=== PATIENT | female | born 1960 | race African-American/Black ===

== ENCOUNTER 2017-04-09 13:47 | Outpatient (CLI) ==
[2016-01-21 15:20] VITALS: BMI 26.4
[2017-04-09 14:25] LABS: BUN/CREATININE RATIO 11.94; CALCIUM 10.5 mg/dL (8.2-10.2); CREATININE 1.34 mg/dL (0.60-1.30)
[2017-04-10 04:47] LABS: URINE CREATINE 74.6 mg/dL (Not Estab.)
== END 2017-04-09 13:48 | disposition home or self-care (01) ==
LOC: LAB 13:47
PROVIDERS: ATTEND Internal Medicine
DX: N18.3 Chronic kidney disease, stage 3 (moderate) (principal); D63.1 Anemia in chronic kidney disease; I12.9 Hypertensive chronic kidney disease with stage 1 through stage 4 chronic kidney disease, or unspecified chronic kidney disease; R80.9 Proteinuria, unspecified; E55.9 Vitamin D deficiency, unspecified; E11.22 Type 2 diabetes mellitus with diabetic chronic kidney disease; E87.2 Acidosis
CPT/HCPCS: 36415; 80048; 82570; 84156

== ENCOUNTER 2017-06-21 14:39 | Outpatient (CLI) ==
[2016-01-21 15:20] VITALS: BMI 26.4
[2017-06-21 15:15] LABS: ANION GAP 13.2; BUN/CREATININE RATIO 13.63; CREATININE 1.76 mg/dL (0.60-1.30); POTASSIUM 4.2 mmol/L (3.5-5.10)
[2017-06-22 14:33] LABS: URINE CREATININE 89.1 mg/dL (Not Estab.); URINE TOTAL PROTEIN 54.7 mg/dL (Not Estab.)
== END 2017-06-21 14:40 | disposition home or self-care (01) ==
LOC: LAB 14:39
PROVIDERS: ATTEND Internal Medicine
DX: N18.3 Chronic kidney disease, stage 3 (moderate) (principal); I12.9 Hypertensive chronic kidney disease with stage 1 through stage 4 chronic kidney disease, or unspecified chronic kidney disease; R80.9 Proteinuria, unspecified; E55.9 Vitamin D deficiency, unspecified; E11.22 Type 2 diabetes mellitus with diabetic chronic kidney disease; E87.2 Acidosis
CPT/HCPCS: 36415; 80048; 82570; 84156

== ENCOUNTER 2017-08-05 10:12 | Outpatient (CLI) ==
[2016-01-21 15:20] VITALS: BMI 26.4
[2017-08-05 10:47] LABS: ALBUMIN 3.1 g/dL (3.4-5.0); BUN/CREATININE RATIO 22.22; CREATININE 1.53 mg/dL (0.60-1.30); PHOSPHORUS 3.7 mg/dL (2.5-4.9)
[2017-08-06 10:00] LABS: URINE CREATININE 55.8 mg/dL (Not Estab.); URINE TOTAL PROTEIN 13.5 mg/dL (Not Estab.)
== END 2017-08-05 10:13 | disposition home or self-care (01) ==
LOC: LAB 10:12
PROVIDERS: ATTEND Internal Medicine
DX: N18.3 Chronic kidney disease, stage 3 (moderate) (principal); I12.9 Hypertensive chronic kidney disease with stage 1 through stage 4 chronic kidney disease, or unspecified chronic kidney disease; R80.9 Proteinuria, unspecified; E55.9 Vitamin D deficiency, unspecified
CPT/HCPCS: 36415; 80069; 82570; 84156

== ENCOUNTER 2017-08-12 07:18 | Outpatient (CLI) ==
[2016-01-21 15:20] VITALS: BMI 26.4
--- NOTE | 2017-08-12 08:16 | US ---
Exam: Ren-scale and color Doppler ultrasonographic evaluation of the kidneys and urinary bladder. Comparison: None available. Reason for exam: Asymptomatic microhematuria. FINDINGS: The right kidney measures 9.04 x 3.9 x 3.99 cm with normal appearing echotexture, no hydro nephrosis, and no nephrolithiasis. Left kidney measures approximately 8.94 x 4.76 x 4.28 cm with normal appearing echotexture, no hydron ephrosis, and no nephrolithiasis. The bladder is incompletely evaluated secondary to non distension without gross abnormality seen on t he ultrasound evaluation. Impression: Unremarkable sonographic evaluation of the kidneys and urinary bladder.
== END 2017-08-12 07:19 | disposition home or self-care (01) ==
LOC: RAD 07:18
PROVIDERS: ATTEND Urology
DX: R31.21 Asymptomatic microscopic hematuria (principal)
CPT/HCPCS: 76770

== ENCOUNTER 2017-12-24 11:40 | Outpatient (CLI) | payer OTHER ==
[2016-01-21 15:20] VITALS: BMI 26.4
== END 2017-12-24 11:41 | disposition home or self-care (01) ==
LOC: LAB 11:40
PROVIDERS: ATTEND Internal Medicine
DX: N18.3 Chronic kidney disease, stage 3 (moderate) (principal); I12.9 Hypertensive chronic kidney disease with stage 1 through stage 4 chronic kidney disease, or unspecified chronic kidney disease; R80.9 Proteinuria, unspecified; E55.9 Vitamin D deficiency, unspecified
CPT/HCPCS: 36415; 80048; 82570; 84156

== ENCOUNTER 2018-01-15 15:10 | Emergency (ER) ==
[2018-01-15 15:15] VITALS: BP 150/85; TEMP 98.4; BMI 23.3
--- NOTE | 2018-01-15 15:38 | ED.PDOC ---
General ED Provider: Dr. DAVID HOLLOWAY Chief Complaint: Eye Problem Stated Complaint: left upper eye lid noudle/ abscess Time Seen by Physician: 15:10 Mode of Arrival: Walk-In Information Source: Patient Exam Limitations: No limitations Nursing and Triage Documentation Reviewed and Agree: Yes Reviewed sepsis parameters & appropriate labs ordered?: Yes System Inflammatory Response Syndrome: Not Applicable Sepsis Protocol: For patient's 13 years and over: Temp is 96.8 and below OR 101 and greater Pulse >90 BPM Resp >20/minute Acutely Altered Mental Status Are patient's symptoms suggestive of a new infection, such as: -Pneumonia -Skin, Soft Tissue -Endocarditis -UTI -Bone, Joint Infection -Implantable Device -Acute Abdominal Infection -Wound Infection -Meningitis -Blood Stream Catheter Infection -Unknown System Inflammatory Response Syndrome: Not Applicable (see photos) EENT Complaint Exam - Eye Complaint/Exam Onset/Duration: 1 week Symptoms Are: Still present Timing: Constant Initial Severity: Moderate Current Severity: Moderate Location: Discreet (left upper lid center ) Aggravating: Reports: None Associated Signs and Symptoms: Denies: Photophobia, Clear drainage, Purulent drainage, Vision impairment, Fever, Swelling Eye Surgical History: Reports: None Penetrating Injury Risk Factors: None Globe Rupture Risk Factors: None Acute Glaucoma Risk Factors: None Optic Artery Occlusion Risk Factors: None Visual Field: Normal Extraocular Movement: Normal Orbit Findings: Normal Globe Findings: Intact Lid Findings: Erythema (abscess see photos) Differential Diagnoses: Other (abscess ) Review of Systems - Review Of Systems Constitutional: Reports: No symptoms Eyes: Reports: Other (abscess upper lid ) Ears, Nose, Mouth, Throat: Reports: No symptoms Respiratory: Reports: No symptoms Cardiac: Reports: No symptoms GI: Reports: No symptoms : Reports: No symptoms Musculoskeletal: Reports: No symptoms Skin: Reports: No symptoms Neurological: Reports: No symptoms Endocrine: Reports: No symptoms Hematologic/Lymphatic: Reports: No symptoms All Other Systems: Reviewed and Negative Past Medical History - Past Medical History Previously Healthy: Yes Endocrine: Reports: DM 2 Cardiovascular: Reports: Hypertension Respiratory: Reports: COPD Hematological: Reports: None Gastrointestinal: Reports: None Genitourinary: Reports: CKD Neuro/Psych: Reports: Anxiety Musculoskeletal: Reports: Back Pain Cancer: Reports: None Last Menstrual Period: hysterectomy - Surgical History General Surgical History: Reports: Hysterectomy - Family History Family History: Reports: Unknown - Social History Smoking Status: Current every day smoker, Light tobacco smoker Hx Substance Use: No Alcohol Screening: Occasionally - Immunizations Tetanus Shot up to Date: (unknown) Physical Exam - Physical Exam Appearance: Well-appearing, No pain distress, Well-nourished Eyes: BIANCA, EOMI (ABSCESS UPPER LID SEE PHOTOS) ENT: Ears normal, Nose normal, Oropharynx normal Respiratory: Airway patent, Breath sounds clear, Breath sounds equal, Respirations nonlabored Cardiovascular: RRR, Pulses normal, No rub, No murmur GI/: Soft, Nontender, No masses, Bowel sounds normal, No Organomegaly Musculoskeletal: Normal strength, ROM intact, No edema, No calf tenderness Skin: Warm, Dry, Normal color Neurological: Sensation intact, Motor intact, Reflexes intact, Cranial nerves intact, Alert, Oriented Psychiatric: Affect appropriate, Mood appropriate Physician Notification - Case Discussed Physician Notified: janell FARR Time of Notification: 15:39 (SEND PT NOW) Admit To: Inpatient Critical Care Note - Critical Care Note Total Time (mins): 0 Course - Course Vital Signs: Temp Pulse Resp BP Pulse Ox 01/15/18 15:10 98.4 F 101 H 20 150/85 H 94 L Departure - Departure Time of Disposition: 15:39 Disposition: HOME SELF-CARE Discharge Problem: Abscess Instructions: Abscess (ED) Condition: Good Pt referred to PMD for follow-up: Yes IPMP verified?: No Additional Instructions: Please call your Family Physician as soon as possible to schedule a follow-up appointment.MUST GO TO [facility] OFFICE NOW Allergies/Adverse Reactions: Allergies No Known Allergies Allergy (Verified 01/15/18 15:16) Home Medications: Ambulatory Orders Insulin Glargine,Hum.rec.anlog [Lantus] 30 unit SQ BID 10/01/14 Lisinopril [Zestril] 5 mg PO DAILY 10/01/14
== END 2018-01-15 15:45 | disposition home or self-care (01) ==
LOC: ED 15:10
DX: H00.034 Abscess of left upper eyelid (principal); F17.210 Nicotine dependence, cigarettes, uncomplicated
CPT/HCPCS: 99281

== ENCOUNTER 2018-03-04 16:44 | Outpatient (CLI) | payer OTHER | END 2018-03-04 16:45 | disposition home or self-care (01) | LOC: LAB 16:44 | PROVIDERS: ATTEND Internal Medicine | DX: N18.3 Chronic kidney disease, stage 3 (moderate) (principal); I12.9 Hypertensive chronic kidney disease with stage 1 through stage 4 chronic kidney disease, or unspecified chronic kidney disease; R80.9 Proteinuria, unspecified; E55.9 Vitamin D deficiency, unspecified | CPT/HCPCS: 36415; 80048; 82570; 84156 ==

== ENCOUNTER 2018-03-20 03:54 | Emergency (ER) | payer OTHER ==
[2018-03-20 03:54] VITALS: BMI 23.3
[2018-03-20] MEDS ORDERED: DILAUDID 0.5 MG/0.5 ML SYRINGE IM STA (04:41)
[2018-03-20] MEDS ORDERED: ZOFRAN ODT PO STA (04:42)
--- NOTE | 2018-03-20 04:45 | ED.PDOC ---
General ED Provider: Dr. ANISH KITCHEN Chief Complaint: Earache Stated Complaint: Patient states she has had severe right ear canal pain for a few days worse today. Time Seen by Physician: 04:42 Mode of Arrival: Walk-In Information Source: Patient Nursing and Triage Documentation Reviewed and Agree: Yes Does patient meet sepsis criteria?: No System Inflammatory Response Syndrome: Not Applicable Sepsis Protocol: For patient's 13 years and over: Temp is 96.8 and below OR 101 and greater Pulse >90 BPM Resp >20/minute Acutely Altered Mental Status Are patient's symptoms suggestive of a new infection, such as: -Pneumonia -Skin, Soft Tissue -Endocarditis -UTI -Bone, Joint Infection -Implantable Device -Acute Abdominal Infection -Wound Infection -Meningitis -Blood Stream Catheter Infection -Unknown EENT Complaint Exam - Ear Complaint/Exam Onset/Duration: 3 days history Symptoms Are: Still present Timing: Constant Initial Severity: Moderate Current Severity: Severe Character: Reports: Sharp pain, Aching pain Aggravating: Reports: Tugging on ear Alleviating: Reports: None Associated Signs and Symptoms: Reports: Pain to external ear, Pain to external face Related History: Denies: Similar Episode, Seasonal allergies, Meds used, Drops used Ear Surgical History: None Vesicles to External Pinna: No Vesicles to Tragus: No TMJ Tenderness: None Mastoid Tenderness: None Tragal Tenderness: None External Canal: Tenderness (to the proximal aspect of the ear cannal noted with an abscess that has fored a white head ) Material in Canal: Present: Discharge Differential Diagnoses: Other (abscess) Review of Systems - Review Of Systems Constitutional: Reports: No symptoms Eyes: Reports: No symptoms Ears, Nose, Mouth, Throat: Reports: Ear pain Respiratory: Reports: No symptoms Cardiac: Reports: No symptoms GI: Reports: No symptoms : Reports: No symptoms Musculoskeletal: Reports: No symptoms Skin: Reports: No symptoms Neurological: Reports: No symptoms Endocrine: Reports: No symptoms Hematologic/Lymphatic: Reports: No symptoms All Other Systems: Reviewed and Negative Past Medical History - Past Medical History Previously Healthy: Yes Endocrine: Reports: DM 2 Cardiovascular: Reports: Hypertension Respiratory: Reports: COPD Hematological: Reports: None Gastrointestinal: Reports: None Genitourinary: Reports: CKD Neuro/Psych: Reports: Anxiety Musculoskeletal: Reports: Back Pain Cancer: Reports: None Last Menstrual Period: PT HAS HAD A HYSTERECTOMY - Surgical History General Surgical History: Reports: Hysterectomy - Family History Family History: Reports: Unknown - Social History Smoking Status: Current every day smoker, Light tobacco smoker Hx Substance Use: No Alcohol Screening: None - Immunizations Tetanus Shot up to Date: (UNKNOWN) Physical Exam - Physical Exam Appearance: Ill-appearing Ill-appearing: Mild Pain Distress: Severe Eyes: BIANCA, EOMI ENT: Nose normal, Oropharynx normal, Rhinorrhea Neck: Supple Respiratory: Airway patent, Breath sounds clear, Breath sounds equal, Respirations nonlabored Cardiovascular: RRR, Pulses normal, No rub, No murmur GI/: Soft, Nontender, No masses, Bowel sounds normal, No Organomegaly Musculoskeletal: Normal strength Skin: Warm, Dry Neurological: Sensation intact, Motor intact, Alert, Oriented Psychiatric: Anxious Procedures - Incision and Drainage Site: Rigth external cannal. Instrument Used: Other (cue tip ) Lidocaine Used: No Type of Drainage: Present: Pus, Blood Irrigated: No Progress: Tolerated poorly due to pain. Give IM Dilaudid due to severity of pain Re-Evaluation - Re-Evaluation Time of Re-Evaluation: 05:05 Status: Improved (pain much better ) Neuro: Alert and Oriented X3 Critical Care Note - Critical Care Note Total Time (mins): 0 Course - Course Orders, Labs, Meds: Orders Category Date Time Status Hydromorphone HCl [Dilaudid] MEDS 03/20/18 04:41 Stat 1 mg IM ONCE STA Ondansetron [Zofran Odt] MEDS 03/20/18 04:42 Stat 4 mg PO ONCE STA Vital Signs: Temp Pulse Resp BP Pulse Ox 03/20/18 03:55 97.9 F 98 H 16 121/67 95 Departure - Departure Time of Disposition: 05:15 Disposition: HOME SELF-CARE Discharge Problem: Abscess of right ear canal Instructions: Abscess (ED) Condition: Stable Pt referred to PMD for follow-up: Yes IPMP verified?: No Additional Instructions: Take pain medications as prescribed Take Bactrium twice a day for 7 days Prescriptions: Sulfamethoxazole/Trimethoprim [Bactrim Ds 800/160 mg] 1 tab PO Q12HR #14 tablet Ibuprofen [Motrin] 600 mg PO Q6H PRN #20 tablet PRN Reason: Analgesia Tramadol HCl [Ultram] 50 mg PO Q6H PRN #14 tablet PRN Reason: Severe Pain Allergies/Adverse Reactions: Allergies No Known Allergies Allergy (Verified 01/15/18 15:16) Home Medications: Ambulatory Orders Insulin Glargine,Hum.rec.anlog [Lantus] 30 unit SQ BID 10/01/14 Lisinopril [Zestril] 5 mg PO BID 10/01/14 Ibuprofen [Motrin] 600 mg PO Q6H PRN #20 tablet 03/20/18 Linagliptin [Tradjenta] 5 mg PO DAILY 03/20/18 Sulfamethoxazole/Trimethoprim [Bactrim Ds 800/160 mg] 1 tab PO Q12HR #14 tablet 03/20/18 Tramadol HCl [Ultram] 50 mg PO Q6H PRN #14 tablet 03/20/18 Disposition Discussed With: Patient
[2018-03-20 05:05] VITALS: BP 142/75; TEMP 97.2
== END 2018-03-20 05:05 | disposition home or self-care (01) ==
LOC: ED 03:54
DX: H60.01 Abscess of right external ear (principal); F17.210 Nicotine dependence, cigarettes, uncomplicated
CPT/HCPCS: 96372; 99282

== ENCOUNTER 2018-04-15 10:35 | Outpatient (CLI) | END 2018-04-15 10:36 | disposition home or self-care (01) | LOC: LAB 10:35 | PROVIDERS: ATTEND Internal Medicine | DX: N18.3 Chronic kidney disease, stage 3 (moderate) (principal); I12.9 Hypertensive chronic kidney disease with stage 1 through stage 4 chronic kidney disease, or unspecified chronic kidney disease; R80.9 Proteinuria, unspecified; E55.9 Vitamin D deficiency, unspecified | CPT/HCPCS: 36415; 80048; 82570; 84156 ==

== ENCOUNTER 2018-09-16 17:20 | Outpatient (CLI) | payer OTHER | END 2018-09-16 17:21 | disposition home or self-care (01) | LOC: LAB 17:20 | PROVIDERS: ATTEND Internal Medicine | DX: N18.3 Chronic kidney disease, stage 3 (moderate) (principal); I12.9 Hypertensive chronic kidney disease with stage 1 through stage 4 chronic kidney disease, or unspecified chronic kidney disease; D63.1 Anemia in chronic kidney disease; E11.9 Type 2 diabetes mellitus without complications; R80.9 Proteinuria, unspecified; E55.9 Vitamin D deficiency, unspecified; E87.5 Hyperkalemia | CPT/HCPCS: 36415; 80069; 81001; 82306; 82570; 83970; 84156; 85014; 85018 ==

== ENCOUNTER 2018-09-18 13:21 | Outpatient (CLI) | payer OTHER | END 2018-09-18 13:22 | disposition home or self-care (01) | LOC: LAB 13:21 | PROVIDERS: ATTEND Family Medicine | DX: N18.3 Chronic kidney disease, stage 3 (moderate) (principal); I12.9 Hypertensive chronic kidney disease with stage 1 through stage 4 chronic kidney disease, or unspecified chronic kidney disease; R80.9 Proteinuria, unspecified; E55.9 Vitamin D deficiency, unspecified; E87.5 Hyperkalemia | CPT/HCPCS: 36415; 80048 ==

== ENCOUNTER 2018-11-29 07:18 | Emergency (ER) ==
[2018-11-29 07:25] VITALS: BP 101/65; TEMP 98.2; BMI 21.4
[2018-11-29] MEDS ORDERED: NORCO 5-325 PO STA (07:47)
--- NOTE | 2018-11-29 08:14 | DI ---
Exam: Right fifth finger, three views. HISTORY: Injury. COMPARISON: None. FINDINGS: AP, lateral and oblique views of the right fifth finger. There is a nondisplaced fractu re the base of middle phalanx of the fifth digit. The fracture lines appear to extend into the proxi mal interphalangeal joint. No other fractures are seen. IMPRESSION: Nondisplaced fracture of the middle phalanx of the fifth finger.
--- NOTE | 2018-11-29 08:39 | ED.PDOC ---
General ED Provider: Dr. ANISH KITCHEN Chief Complaint: Finger Pain/Injury Stated Complaint: hit the right finger on wooden fireplace 2 days ago Time Seen by Physician: 07:50 Mode of Arrival: Walk-In Information Source: Patient Exam Limitations: No limitations Primary Care Provider: KARL HERNANDEZ Nursing and Triage Documentation Reviewed and Agree: Yes Does patient meet sepsis criteria?: No System Inflammatory Response Syndrome: Not Applicable Sepsis Protocol: For patient's 13 years and over: Temp is 96.8 and below OR 101 and greater Pulse >90 BPM Resp >20/minute Acutely Altered Mental Status Are patient's symptoms suggestive of a new infection, such as: -Pneumonia -Skin, Soft Tissue -Endocarditis -UTI -Bone, Joint Infection -Implantable Device -Acute Abdominal Infection -Wound Infection -Meningitis -Blood Stream Catheter Infection -Unknown Review of Systems - Review Of Systems Constitutional: Reports: No symptoms Eyes: Reports: No symptoms Ears, Nose, Mouth, Throat: Reports: No symptoms Respiratory: Reports: No symptoms Cardiac: Reports: No symptoms GI: Reports: No symptoms : Reports: No symptoms Musculoskeletal: Reports: Joint pain, Joint swelling Skin: Reports: No symptoms Neurological: Reports: No symptoms Endocrine: Reports: No symptoms Hematologic/Lymphatic: Reports: No symptoms All Other Systems: Reviewed and Negative Past Medical History - Past Medical History Previously Healthy: Yes Endocrine: Reports: DM 2 Cardiovascular: Reports: Hypertension Respiratory: Reports: COPD Hematological: Reports: None Gastrointestinal: Reports: None Genitourinary: Reports: CKD Neuro/Psych: Reports: Anxiety Musculoskeletal: Reports: Back Pain Cancer: Reports: None Last Menstrual Period: hysterectomy - Surgical History General Surgical History: Reports: Hysterectomy - Family History Family History: Reports: Unknown - Social History Smoking Status: Current every day smoker, Light tobacco smoker Hx Substance Use: No Alcohol Screening: None Physical Exam - Physical Exam Appearance: Well-appearing Pain Distress: Moderate Musculoskeletal: Limited ROM Skin: Warm, Dry Neurological: Alert, Oriented Psychiatric: Anxious Interpretation - Radiology Interpretation Radiology Interpretation By: Radiologist Radiology Results: Positive Exam Interpreted: Other (non displaced fracture of the middle phalanx of the 5th finger ) Critical Care Note - Critical Care Note Total Time (mins): 0 Course - Course Orders, Labs, Meds: Orders Category Date Time Status Hydrocodone Bit/Acetaminophen [[place] 5-325] MEDS 11/29/18 07:47 Discontinued 1 tab PO ONCE STA FINGER(S) RIGHT MIN 2V Stat RADS 11/29/18 07:52 Completed Medications Discontinued Medications Generic Name Dose Route Start Last Admin Trade Name Bernardo PRN Reason Stop Dose Admin Hydrocodone Bitart/Acetaminophen 1 tab 11/29/18 07:47 11/29/18 07:58 [place] 5-325 PO 11/29/18 07:48 1 tab ONCE STA Administration Vital Signs: Temp Pulse Resp BP Pulse Ox 11/29/18 07:19 98.2 F 78 20 101/65 97 Departure - Departure Time of Disposition: 08:38 Disposition: HOME SELF-CARE Discharge Problem: Fracture of middle phalanx of right little finger Qualifiers: Encounter type: initial encounter Fracture type: closed Fracture alignment: nondisplaced Qualified Code(s): S62.656A - Nondisplaced fracture of middle phalanx of right little finger, initial encounter for closed fracture Instructions: Finger Fracture (ED) Condition: Stable Pt referred to PMD for follow-up: Yes IPMP verified?: No Additional Instructions: Continue home pain medications follow up with PCP for orthopedic referral Allergies/Adverse Reactions: Allergies No Known Allergies Allergy (Verified 11/29/18 07:25) Home Medications: Ambulatory Orders Lisinopril [Zestril] 5 mg PO BID 10/01/14 Hydrocodone/Acetaminophen [[place] 10-325 Tablet] 1 each PO TID 08/28/18 Quetiapine Fumarate [Seroquel] 50 mg PO BEDTIME 08/28/18 Quetiapine Fumarate [Seroquel] 100 mg PO BEDTIME 08/28/18 Disposition Discussed With: Patient, Family
== END 2018-11-29 08:52 | disposition home or self-care (01) ==
LOC: ED 07:18
DX: S62.656A Nondisplaced fracture of middle phalanx of right little finger, initial encounter for closed fracture (principal); W22.8XXA Striking against or struck by other objects, initial encounter; F17.210 Nicotine dependence, cigarettes, uncomplicated
CPT/HCPCS: 99283

== ENCOUNTER 2018-12-01 12:58 | Outpatient (CLI) | payer OTHER | END 2018-12-01 12:59 | disposition home or self-care (01) | LOC: LAB 12:58 | PROVIDERS: ATTEND Internal Medicine | DX: N18.3 Chronic kidney disease, stage 3 (moderate) (principal); I12.9 Hypertensive chronic kidney disease with stage 1 through stage 4 chronic kidney disease, or unspecified chronic kidney disease; R80.9 Proteinuria, unspecified; E55.9 Vitamin D deficiency, unspecified; E87.5 Hyperkalemia | CPT/HCPCS: 36415; 80069; 82570; 83970; 84156 ==

== ENCOUNTER 2018-12-24 06:14 | Outpatient (CLI) | payer OTHER | END 2018-12-24 06:15 | disposition home or self-care (01) | LOC: LAB 06:14 | PROVIDERS: ATTEND Internal Medicine | DX: N18.3 Chronic kidney disease, stage 3 (moderate) (principal); I12.9 Hypertensive chronic kidney disease with stage 1 through stage 4 chronic kidney disease, or unspecified chronic kidney disease; R80.9 Proteinuria, unspecified; E55.9 Vitamin D deficiency, unspecified; E87.5 Hyperkalemia; E11.9 Type 2 diabetes mellitus without complications; Z86.2 Personal history of diseases of the blood and blood-forming organs and certain disorders involving the immune mechanism | CPT/HCPCS: 36415; 80053; 83036; 85025 ==

== ENCOUNTER 2019-02-13 15:43 | Outpatient (CLI) | payer OTHER | END 2019-02-13 15:44 | disposition home or self-care (01) | LOC: LAB 15:43 | PROVIDERS: ATTEND Internal Medicine | DX: N18.3 Chronic kidney disease, stage 3 (moderate) (principal); D63.1 Anemia in chronic kidney disease; I12.9 Hypertensive chronic kidney disease with stage 1 through stage 4 chronic kidney disease, or unspecified chronic kidney disease; E11.9 Type 2 diabetes mellitus without complications; R80.9 Proteinuria, unspecified; E55.9 Vitamin D deficiency, unspecified; E87.5 Hyperkalemia | CPT/HCPCS: 36415; 80069; 81001; 82570; 82728; 83036; 83540; 83550; 83970; 84156; 84466; 85025 ==

== ENCOUNTER 2019-03-05 08:37 | Emergency (ER) ==
[2019-03-05 08:46] VITALS: BP 176/93; TEMP 98.2; BMI 22.1
== END 2019-03-05 12:40 | disposition left against medical advice (07) ==
LOC: ED 08:37
DX: M54.41 Lumbago with sciatica, right side (principal)
CPT/HCPCS: 99282

== ENCOUNTER 2019-04-29 16:18 | Outpatient (CLI) ==
[2019-04-21 12:12] VITALS: BMI 21.2
== END 2019-04-29 16:19 | disposition home or self-care (01) ==
LOC: LAB 16:18
PROVIDERS: ATTEND Internal Medicine
DX: N18.3 Chronic kidney disease, stage 3 (moderate) (principal); D63.1 Anemia in chronic kidney disease; I12.9 Hypertensive chronic kidney disease with stage 1 through stage 4 chronic kidney disease, or unspecified chronic kidney disease; R80.9 Proteinuria, unspecified; E55.9 Vitamin D deficiency, unspecified
CPT/HCPCS: 36415; 80048; 82570; 84156; 84165; 85014; 85018